=== PATIENT | male | born 1960 | race Caucasian/White ===

== ENCOUNTER 2021-04-12 19:23 | Inpatient (IN) ==
[2021-04-12] MEDS ORDERED: ONDANSETRON 4 MG/2 ML VIAL IV STA (19:53)
[2021-04-12] MEDS ORDERED: methylPREDNISolone SOD SUC 125 MG/2 ML VIAL IV STA (19:53)
[2021-04-12] MEDS ORDERED: SODIUM CHLORIDE 0.9% 500 ML IV STA (19:53)
[2021-04-12] MEDS ORDERED: IPRATROPIUM 500 MCG/2.5 ML NEB RESP TX STA (19:55)
[2021-04-12] MEDS ORDERED: ALBUTEROL 2.5 MG/3 ML NEB RESP TX ONE (19:58)
[2021-04-12] MEDS ORDERED: ALBUTEROL NEB SOLN 5 MG/ML 20 ML/BOTTLE CONT NEB SCH (20:00)
[2021-04-12 20:10] LABS: ABG Base Excess 1.1 MMOL/L (-2.5-2.5); ABG HCO3 22.6 MMOL/L (20-26); ABG Oxygen Saturation 92.7 % (95-100); ABG PCO2 26.3 MM HG (35-48); ABG PH 7.552 (7.35-7.45); ABG PO2 62.2 MM HG (80-95); ABG TCO2 23.4 MMOL/L (23-27); Allen Test Positive
[2021-04-12 20:42] LABS: Basophils % 0.3 % (0.0-0.8); Eosinophils % 0.3 % (0.00-10.9); Hematocrit 28.4 VOL% (42.0-52.0); Hemoglobin 9.1 GM/DL (14.0-18.0); Immature Granulocytes % 0.6 %; Immature Granulocytes Absolute 0.02 #; Lymphocytes # 0.6 10*3/uL (1.4-4.0); Lymphocytes % 15.3 % (21.2-54.2); Mean Corpuscular Volume 102.5 FL (87-102); Monocytes % 6.4 % (1.7-12.7); NRBC # 0.02 10*3/uL; Neutrophils % 77.1 % (38.7-73.9); Platelet Count 75 T/CUMM (130-400); Red Blood Count 2.77 MC/CUMM (3.8-5.5); Red Cell Distribution Width 21.6 % (9.3-17.3); White Blood Count 3.6 T/CUMM (4-12)
[2021-04-12] MEDS ORDERED: cefTRIAXone 1,000 MG in SODIUM CHLORIDE 0.9% 100 ML IV STA (20:42)
[2021-04-12 20:49] LABS: Barbiturates Screen,Urine Negative (Negative); Benzodiazepines Screen,Urine Negative (Negative); Bilirubin,Urine Negative (Negative); Blood, Urine Negative (Negative); Cannabinoid Screen,Urine Negative (Negative); Glucose,Urine (UA) Negative (Negative); Ketones,Urine Negative (Negative); Mucus,Urine Occasional /LPF (Occasional); Nitrite,Urine Negative (Negative); Opiate Screen,Urine Negative (Negative); Phencyclidine Screen,Urine Negative (Negative); Protein,Urine Negative; RBC,Urine 2 /HPF (0-4); Squamous Epithelial Cell,Urine Occasional /HPF (0-10); Urine Appearance CLEAR (Clear); Urine Color Amber (Yellow); Urine Specific Gravity 1.021 (1.001-1.035)
[2021-04-12 20:58] LABS: PT Patient Result 11.3 SECS (10.5-12.0)
[2021-04-12 21:07] LABS: Alanine Aminotransferase 62 U/L (16-61); Albumin 1.9 G/DL (3.4-5.0); Alkaline Phosphatase 244 U/L (45-117); Aspartate Amino Transferase 56 U/L (0-37); Blood Urea Nitrogen 59 MG/DL (7-18); Calcium 8.2 MG/DL (8.5-10.1); Carbon Dioxide 28 MMOL/L (21-32); Estimated Glom Filtration Rate 75 ML/MIN; Glucose 136 MG/DL (74-106); Osmolality,Calculated 295.5 MOS/KG (273-304); Potassium 4.3 MMOL/L (3.5-5.1); Sodium 139 MMOL/L (136-145); Total Protein 6.6 G/DL (6.4-8.2)
[2021-04-13] MEDS ORDERED: SODIUM CHLORIDE 0.9% 1,000 ML IV STA ×2 (01:29→07:35)
[2021-04-13] MEDS ORDERED: ACETAMINOPHEN 325 MG TABLET PO PRN (02:19)
[2021-04-13] MEDS ORDERED: GLUCAGON 1 MG VIAL IM PRN (02:19)
[2021-04-13] MEDS ORDERED: ONDANSETRON 4 MG/2 ML VIAL IV PRN (02:19)
[2021-04-13] MEDS ORDERED: LACTULOSE 20 GM/30 ML UDCUP PO PRN (02:19)
[2021-04-13] MEDS ORDERED: DEXTROSE 50% 25 GM/50 ML SYRINGE IV PRN (02:32)
[2021-04-13] MEDS ORDERED: cefTRIAXone 1,000 MG in SODIUM CHLORIDE 0.9% 100 ML IV SCH (03:00)
[2021-04-13] MEDS: SODIUM CHLORIDE 0.9% 1,000 ML IV SCH ×2 (03:27→17:38)
[2021-04-13 04:27] LABS: Hemoglobin 7.7 GM/DL (14.0-18.0); Immature Granulocytes % 0.5 %; Immature Granulocytes Absolute 0.01 #; Lymphocytes # 0.2 10*3/uL (1.4-4.0); Lymphocytes % 11.1 % (21.2-54.2); Mean Corpuscular HGB Conc 30.8 GM/DL (32-36); Mean Corpuscular Volume 106.4 FL (87-102); Mean Platelet Volume 12.4 FL (9.6-12.0); Monocytes % 1.4 % (1.7-12.7); Platelet Count 61 T/CUMM (130-400); Red Blood Count 2.35 MC/CUMM (3.8-5.5); Red Cell Distribution Width 21.9 % (9.3-17.3); White Blood Count 2.2 T/CUMM (4-12)
[2021-04-13 04:48] LABS: Albumin 1.7 G/DL (3.4-5.0); Bilirubin,Total 0.4 MG/DL (0.20-1.00); Calcium 8.8 MG/DL (8.5-10.1); Osmolality,Calculated 295.5 MOS/KG (273-304); Potassium 4.2 MMOL/L (3.5-5.1); Total Protein 6.3 G/DL (6.4-8.2)
[2021-04-13] MEDS: methylPREDNISolone SOD SUC 40 MG/1 ML VIAL IV SCH ×3 (04:50→20:24)
[2021-04-13] MEDS: AZITHROMYCIN INJ 500 MG in SODIUM CHLORIDE 0.9% 250 ML IV SCH (04:53)
[2021-04-13] MEDS: ALBUTEROL/IPRATROPIUM 3 ML NEB RESP TX SCH ×3 (07:00→20:57)
[2021-04-13] MEDS ORDERED: AZTREONAM 2,000 MG in SODIUM CHLORIDE 0.9% 100 ML IV SCH (08:00)
[2021-04-13 08:11] LABS: ABG Base Excess -3.3 MMOL/L (-2.5-2.5); ABG HCO3 19.9 MMOL/L (20-26); ABG Oxygen Saturation 90.2 % (95-100); ABG PCO2 28.2 MM HG (35-48); ABG PH 7.467 (7.35-7.45); ABG PO2 59.9 MM HG (80-95); ABG TCO2 20.8 MMOL/L (23-27)
[2021-04-13] MEDS: MEROPENEM 500 MG in SODIUM CHLORIDE 0.9% 100 ML IV SCH ×3 (08:22→20:24)
[2021-04-13] MEDS: PANTOPRAZOLE 40 MG VIAL IV SCH (09:14)
[2021-04-13] MEDS: VANCOMYCIN INJ 1,000 MG in SODIUM CHLORIDE 0.9% 250 ML IV SCH ×2 (09:20→21:10)
[2021-04-13] MEDS: POLYETHYLENE GLYCOL POWDER 17 GM PACK PO SCH (09:21)
[2021-04-13] MEDS: MORPHINE 2 MG/1 ML SYRINGE IV PRN (20:27)
[2021-04-14] MEDS: MEROPENEM 500 MG in SODIUM CHLORIDE 0.9% 100 ML IV SCH ×4 (01:06→23:29)
[2021-04-14] MEDS: ALBUTEROL/IPRATROPIUM 3 ML NEB RESP TX SCH ×4 (01:12→20:25)
[2021-04-14] MEDS: methylPREDNISolone SOD SUC 40 MG/1 ML VIAL IV SCH ×3 (03:32→21:03)
[2021-04-14] MEDS: AZITHROMYCIN INJ 500 MG in SODIUM CHLORIDE 0.9% 250 ML IV SCH (03:33)
[2021-04-14] MEDS: SODIUM CHLORIDE 0.9% 1,000 ML IV SCH ×3 (03:33→15:26)
[2021-04-14 05:29] LABS: Hematocrit 23.1 VOL% (42.0-52.0); Hemoglobin 7.2 GM/DL (14.0-18.0); Immature Granulocytes % 0.9 %; Immature Granulocytes Absolute 0.02 #; Lymphocytes # 0.3 10*3/uL (1.4-4.0); Lymphocytes % 12.9 % (21.2-54.2); Mean Corpuscular HGB Conc 31.2 GM/DL (32-36); Mean Corpuscular Volume 107.9 FL (87-102); Mean Platelet Volume 12.3 FL (9.6-12.0); Monocytes % 5.3 % (1.7-12.7); NRBC # 0.03 10*3/uL; Neutrophils % 80.9 % (38.7-73.9); Red Blood Count 2.14 MC/CUMM (3.8-5.5); Red Cell Distribution Width 21.6 % (9.3-17.3); White Blood Count 2.3 T/CUMM (4-12)
[2021-04-14 05:44] LABS: Osmolality,Calculated 296.7 MOS/KG (273-304); Potassium 3.9 MMOL/L (3.5-5.1)
[2021-04-14 05:48] LABS: Platelet Count 50 T/CUMM (130-400)
[2021-04-14 06:18] LABS: Band Neutrophils 2 % (0-10); Lymphocytes 11 % (20-55); Segmented Neutrophils 82 % (50-85); Total Cells Counted 100
[2021-04-14 06:19] LABS: Anisocytosis 1+; Macrocytosis 1+; Ovalocytes Slight; Platelet Estimate Decreased; Tear Drop Cells Slight
[2021-04-14] MEDS ORDERED: SODIUM CHLORIDE 0.9% 1,000 ML IV PRN (09:12)
[2021-04-14] MEDS: POLYETHYLENE GLYCOL POWDER 17 GM PACK PO SCH (09:52)
[2021-04-14] MEDS: PANTOPRAZOLE 40 MG VIAL IV SCH (09:56)
[2021-04-14] MEDS: VANCOMYCIN INJ 1,000 MG in SODIUM CHLORIDE 0.9% 250 ML IV SCH ×2 (09:56→21:05)
[2021-04-14] MEDS: MORPHINE 2 MG/1 ML SYRINGE IV PRN (22:12)
[2021-04-15] MEDS: ALBUTEROL/IPRATROPIUM 3 ML NEB RESP TX SCH ×4 (00:30→20:50)
[2021-04-15] MEDS: methylPREDNISolone SOD SUC 40 MG/1 ML VIAL IV SCH ×3 (03:58→20:27)
[2021-04-15] MEDS: MEROPENEM 500 MG in SODIUM CHLORIDE 0.9% 100 ML IV SCH ×3 (05:13→17:37)
[2021-04-15] MEDS: SODIUM CHLORIDE 0.9% 1,000 ML IV SCH (06:01)
[2021-04-15 06:16] LABS: Albumin 1.6 G/DL (3.4-5.0); Bilirubin,Total 1.2 MG/DL (0.20-1.00); Calcium 8.4 MG/DL (8.5-10.1); Hematocrit 28.9 VOL% (42.0-52.0); Immature Granulocytes % 1.3 %; Immature Granulocytes Absolute 0.03 #; Lymphocytes # 0.3 10*3/uL (1.4-4.0); Lymphocytes % 11.4 % (21.2-54.2); Mean Corpuscular HGB Conc 32.2 GM/DL (32-36); Mean Corpuscular Volume 101.8 FL (87-102); Mean Platelet Volume 12.2 FL (9.6-12.0); Monocytes % 7.2 % (1.7-12.7); NRBC # 0.03 10*3/uL; Neutrophils % 80.1 % (38.7-73.9); Osmolality,Calculated 289.3 MOS/KG (273-304); Platelet Count 44 T/CUMM (130-400); Potassium 3.9 MMOL/L (3.5-5.1); Red Blood Count 2.84 MC/CUMM (3.8-5.5); Red Cell Distribution Width 23.1 % (9.3-17.3); Total Protein 5.2 G/DL (6.4-8.2); White Blood Count 2.4 T/CUMM (4-12)
[2021-04-15 06:17] LABS: Hemoglobin 9.3 GM/DL (14.0-18.0)
[2021-04-15 06:19] LABS: Hypochromasia Slight; Microcytosis Slight; Platelet Estimate Decreased
[2021-04-15] MEDS: POLYETHYLENE GLYCOL POWDER 17 GM PACK PO SCH (09:10)
[2021-04-15] MEDS: PANTOPRAZOLE 40 MG VIAL IV SCH (09:10)
[2021-04-15] MEDS: VANCOMYCIN INJ 1,000 MG in SODIUM CHLORIDE 0.9% 250 ML IV SCH (09:10)
[2021-04-15] MEDS ORDERED: FUROSEMIDE 40 MG/4 ML VIAL IV ONE (15:25)
[2021-04-15] MEDS: traZODone 50 MG TABLET PO PRN (22:53)
[2021-04-16] MEDS: MEROPENEM 500 MG in SODIUM CHLORIDE 0.9% 100 ML IV SCH ×5 (00:18→23:10)
[2021-04-16] MEDS: ALBUTEROL/IPRATROPIUM 3 ML NEB RESP TX SCH ×4 (01:59→19:24)
[2021-04-16] MEDS: methylPREDNISolone SOD SUC 40 MG/1 ML VIAL IV SCH ×3 (05:15→20:30)
[2021-04-16 05:17] LABS: Basophils % 0.4 % (0.0-0.8); Hematocrit 30.7 VOL% (42.0-52.0); Hemoglobin 9.8 GM/DL (14.0-18.0); Immature Granulocytes % 3.3 %; Immature Granulocytes Absolute 0.08 #; Lymphocytes # 0.3 10*3/uL (1.4-4.0); Lymphocytes % 13.6 % (21.2-54.2); Mean Corpuscular HGB Conc 31.9 GM/DL (32-36); Mean Platelet Volume 11.3 FL (9.6-12.0); Monocytes % 8.6 % (1.7-12.7); NRBC # 0.04 10*3/uL; Neutrophils % 74.1 % (38.7-73.9); Red Blood Count 3.01 MC/CUMM (3.8-5.5); Red Cell Distribution Width 22.5 % (9.3-17.3); White Blood Count 2.4 T/CUMM (4-12)
[2021-04-16 05:20] LABS: Platelet Count 37 T/CUMM (130-400)
[2021-04-16 05:35] LABS: Albumin 1.6 G/DL (3.4-5.0); Bilirubin,Total 0.6 MG/DL (0.20-1.00); Calcium 8.3 MG/DL (8.5-10.1); Osmolality,Calculated 287.3 MOS/KG (273-304); Potassium 3.8 MMOL/L (3.5-5.1)
[2021-04-16 05:40] LABS: Hypochromasia Slight; Microcytosis Slight; Platelet Estimate Decreased
[2021-04-16] MEDS: PANTOPRAZOLE 40 MG VIAL IV SCH (08:23)
[2021-04-16] MEDS: POLYETHYLENE GLYCOL POWDER 17 GM PACK PO SCH (08:27)
[2021-04-16] MEDS: traZODone 50 MG TABLET PO PRN (22:10)
[2021-04-17] MEDS: ALBUTEROL/IPRATROPIUM 3 ML NEB RESP TX SCH ×4 (00:52→19:41)
[2021-04-17] MEDS: methylPREDNISolone SOD SUC 40 MG/1 ML VIAL IV SCH ×3 (05:14→20:15)
[2021-04-17] MEDS: MEROPENEM 500 MG in SODIUM CHLORIDE 0.9% 100 ML IV SCH ×4 (05:15→23:11)
[2021-04-17 05:49] LABS: Basophils % 0.4 % (0.0-0.8); Hematocrit 32.4 VOL% (42.0-52.0); Hemoglobin 10.5 GM/DL (14.0-18.0); Immature Granulocytes % 5.4 %; Immature Granulocytes Absolute 0.14 #; Lymphocytes # 0.4 10*3/uL (1.4-4.0); Lymphocytes % 13.6 % (21.2-54.2); Mean Corpuscular HGB Conc 32.4 GM/DL (32-36); Mean Corpuscular Volume 101.6 FL (87-102); Mean Platelet Volume 11.7 FL (9.6-12.0); Monocytes % 8.6 % (1.7-12.7); NRBC # 0.03 10*3/uL; Platelet Count 46 T/CUMM (130-400); Red Blood Count 3.19 MC/CUMM (3.8-5.5); Red Cell Distribution Width 22.1 % (9.3-17.3); White Blood Count 2.6 T/CUMM (4-12)
[2021-04-17 05:55] LABS: Albumin 1.8 G/DL (3.4-5.0); Bilirubin,Total 0.4 MG/DL (0.20-1.00); Calcium 8.4 MG/DL (8.5-10.1); Osmolality,Calculated 285.1 MOS/KG (273-304); Potassium 4.2 MMOL/L (3.5-5.1); Total Protein 5.2 G/DL (6.4-8.2)
[2021-04-17 06:18] LABS: Anisocytosis 2+; Hypochromasia 2+; Lymphocytes 13 % (20-55); Metamyelocytes 3 %; Myelocytes 3 %; Ovalocytes Few; Polychromasia Slight; Segmented Neutrophils 77 % (50-85); Total Cells Counted 100
[2021-04-17 06:19] LABS: Elliptocytes Few; Platelet Estimate Decreased; Tear Drop Cells Few
[2021-04-17] MEDS: POLYETHYLENE GLYCOL POWDER 17 GM PACK PO SCH (09:20)
[2021-04-17] MEDS: PANTOPRAZOLE 40 MG VIAL IV SCH (09:20)
[2021-04-17] MEDS: traZODone 50 MG TABLET PO PRN (22:06)
[2021-04-18] MEDS: ALBUTEROL/IPRATROPIUM 3 ML NEB RESP TX SCH ×4 (00:04→20:38)
[2021-04-18 13:36] LABS: Calcium 8.4 MG/DL (8.5-10.1); Osmolality,Calculated 286.1 MOS/KG (273-304); Potassium 4.2 MMOL/L (3.5-5.1)
[2021-04-18] MEDS: POLYETHYLENE GLYCOL POWDER 17 GM PACK PO SCH (15:26)
[2021-04-18] MEDS: PANTOPRAZOLE 40 MG VIAL IV SCH (15:26)
[2021-04-18] MEDS: methylPREDNISolone SOD SUC 40 MG/1 ML VIAL IV SCH ×3 (15:26→20:18)
[2021-04-18] MEDS: MEROPENEM 500 MG in SODIUM CHLORIDE 0.9% 100 ML IV SCH ×3 (15:26→20:21)
[2021-04-18 16:10] LABS: Basophils % 0.4 % (0.0-0.8); Hematocrit 32.4 VOL% (42.0-52.0); Hemoglobin 10.2 GM/DL (14.0-18.0); Immature Granulocytes % 2.5 %; Immature Granulocytes Absolute 0.06 #; Lymphocytes # 0.4 10*3/uL (1.4-4.0); Lymphocytes % 14.6 % (21.2-54.2); Mean Corpuscular HGB Conc 31.5 GM/DL (32-36); Mean Corpuscular Volume 106.2 FL (87-102); Mean Platelet Volume 12.1 FL (9.6-12.0); Monocytes % 7.1 % (1.7-12.7); NRBC # 0.03 10*3/uL; Neutrophils % 75.4 % (38.7-73.9); Platelet Count 45 T/CUMM (130-400); Red Blood Count 3.05 MC/CUMM (3.8-5.5); Red Cell Distribution Width 22.5 % (9.3-17.3); White Blood Count 2.4 T/CUMM (4-12)
[2021-04-18 19:18] LABS: Platelet Estimate Decreased; Polychromasia Slight
[2021-04-19] MEDS: ALBUTEROL/IPRATROPIUM 3 ML NEB RESP TX SCH ×2 (01:37→07:12)
[2021-04-19] MEDS: methylPREDNISolone SOD SUC 40 MG/1 ML VIAL IV SCH ×2 (04:04→15:03)
[2021-04-19] MEDS: MEROPENEM 500 MG in SODIUM CHLORIDE 0.9% 100 ML IV SCH ×2 (04:06→09:03)
[2021-04-19 06:42] LABS: Basophils % 0.3 % (0.0-0.8); Hematocrit 33.4 VOL% (42.0-52.0); Hemoglobin 10.9 GM/DL (14.0-18.0); Immature Granulocytes % 2.9 %; Immature Granulocytes Absolute 0.09 #; Lymphocytes # 0.3 10*3/uL (1.4-4.0); Lymphocytes % 8.1 % (21.2-54.2); Mean Corpuscular HGB Conc 32.6 GM/DL (32-36); Mean Corpuscular Volume 103.1 FL (87-102); Mean Platelet Volume 11.6 FL (9.6-12.0); Monocytes % 6.5 % (1.7-12.7); Neutrophils % 82.2 % (38.7-73.9); Platelet Count 53 T/CUMM (130-400); Red Blood Count 3.24 MC/CUMM (3.8-5.5); Red Cell Distribution Width 21.8 % (9.3-17.3); White Blood Count 3.1 T/CUMM (4-12)
[2021-04-19 06:54] LABS: Calcium 8.4 MG/DL (8.5-10.1); Osmolality,Calculated 282.4 MOS/KG (273-304); Potassium 4.4 MMOL/L (3.5-5.1)
[2021-04-19 07:13] LABS: Anisocytosis 1+; Hypochromasia 1+; Microcytosis 1+; Polychromasia Slight; Tear Drop Cells Slight
[2021-04-19 07:14] LABS: Ovalocytes Slight; Platelet Estimate Decreased
[2021-04-19] MEDS: POLYETHYLENE GLYCOL POWDER 17 GM PACK PO SCH (09:04)
[2021-04-19] MEDS: PANTOPRAZOLE 40 MG VIAL IV SCH (09:04)
[2021-04-19] MEDS ORDERED: HEPARIN LOCK FLUSH 500 UNIT/5 ML SYRINGE IV ONE (15:21)
[2021-04-19 17:01] VITALS: BP 115/78
[2021-04-20] MEDS ORDERED: predniSONE 20 MG TABLET PO SCH (09:00)
== END 2021-04-19 16:25 | disposition home health service (06) | DRG 193 ==
LOC: EDUNIT# → EDBD → N.ED 19:23 → N.EDINP 04-13 02:19 → SUATTDRO 04-13 02:19 → N.2E 04-13 12:21
PROVIDERS: ADMIT Internal Medicine; ATTEND Internal Medicine

== ENCOUNTER 2021-04-27 11:46 | Inpatient (IN) ==
[2021-04-27] MEDS ORDERED: FUROSEMIDE 100 MG/10 ML VIAL IV STA (11:59)
[2021-04-27] MEDS ORDERED: methylPREDNISolone SOD SUC 125 MG/2 ML VIAL IV STA (11:59)
[2021-04-27] MEDS ORDERED: ALBUTEROL/IPRATROPIUM 3 ML NEB RESP TX STA (11:59)
[2021-04-27] MEDS ORDERED: propofoL 200 MG/20 ML VIAL IV ONE (12:08)
[2021-04-27 12:14] LABS: Basophils # 0.1 10*3/uL (0.0-0.2); Basophils % 0.4 % (0.0-0.8); Eosinophils # 0.1 10*3/uL (0.0-0.87); Eosinophils % 0.5 % (0.00-10.9); Hematocrit 43.5 VOL% (42.0-52.0); Hemoglobin 13.8 GM/DL (14.0-18.0); Immature Granulocytes Absolute 0.32 #; Lymphocytes # 4.3 10*3/uL (1.4-4.0); Mean Corpuscular HGB Conc 31.7 GM/DL (32-36); Mean Corpuscular Volume 106.1 FL (87-102); Mean Platelet Volume 10.3 FL (9.6-12.0); Monocytes % 10.6 % (1.7-12.7); Neutrophils % 59.5 % (38.7-73.9); Platelet Count 201 T/CUMM (130-400); Red Cell Distribution Width 20.9 % (9.3-17.3); White Blood Count 16.1 T/CUMM (4-12)
[2021-04-27 12:15] LABS: ABG HCO3 20.1 MMOL/L (20-26); ABG Oxygen Saturation 85.7 % (95-100); ABG PCO2 31.6 MM HG (35-48); ABG PH 7.386 (7.35-7.45); ABG PO2 56.8 MM HG (80-95); ABG TCO2 16.4 MMOL/L (23-27)
[2021-04-27 12:35] LABS: Albumin 2.4 G/DL (3.4-5.0); Bilirubin,Total 0.7 MG/DL (0.20-1.00); Calcium 8.8 MG/DL (8.5-10.1); Osmolality,Calculated 285.7 MOS/KG (273-304); Potassium 3.5 MMOL/L (3.5-5.1); Total Protein 7.2 G/DL (6.4-8.2)
[2021-04-27 12:44] LABS: Atypical Lymphocytes Few; Band Neutrophils 6 % (0-10); Lymphocytes 25 % (20-55); Myelocytes 2 %; Platelet Estimate Normal; Segmented Neutrophils 52 % (50-85); Total Cells Counted 100
[2021-04-27 12:45] LABS: Anisocytosis 1+; Macrocytosis 1+; Smudge Cells Few; Spherocytes Few
[2021-04-27] MEDS ORDERED: MORPHINE 2 MG/1 ML SYRINGE ONE (13:16)
[2021-04-27] MEDS ORDERED: ONDANSETRON 4 MG/2 ML VIAL ONE (13:16)
[2021-04-27] MEDS ORDERED: ONDANSETRON 4 MG/2 ML VIAL IV STA (13:22)
[2021-04-27] MEDS ORDERED: MORPHINE 2 MG/1 ML SYRINGE IV STA ×3 (13:22→15:00)
[2021-04-27] MEDS ORDERED: SODIUM CHLORIDE 0.9% 500 ML IV STA (14:48)
[2021-04-27] MEDS ORDERED: ALBUTEROL 2.5 MG/3 ML NEB RESP TX PRN (15:09)
[2021-04-27] MEDS: LACTATED RINGERS 1,000 ML IV SCH ×2 (15:35→23:38)
[2021-04-27] MEDS: ENOXAPARIN 40 MG/0.4 ML SYRINGE SUBCUT SCH (15:52)
[2021-04-27] MEDS ORDERED: HYDROmorphone 2 MG/1 ML VIAL IV STA (16:00)
[2021-04-27] MEDS ORDERED: HYDROmorphone 2 MG/1 ML VIAL ONE (16:10)
[2021-04-27] MEDS: LEVOFLOXACIN INJ 750 MG/150 ML PREMIX IV SCH (16:10)
[2021-04-27] MEDS: ONDANSETRON 4 MG/2 ML VIAL IV PRN (20:16)
[2021-04-27] MEDS: MORPHINE 2 MG/1 ML SYRINGE IV PRN (20:43)
[2021-04-27] MEDS ORDERED: ONDANSETRON 4 MG/2 ML VIAL IV ONE (21:07)
[2021-04-27] MEDS ORDERED: PROMETHAZINE INJ 25 MG in SODIUM CHLORIDE 0.9% 50 ML IV PRN (21:40)
[2021-04-28] MEDS: LACTATED RINGERS 1,000 ML IV SCH ×3 (01:48→17:26)
[2021-04-28] MEDS: MORPHINE 2 MG/1 ML SYRINGE IV PRN ×5 (03:24→22:42)
[2021-04-28 03:29] LABS: ABG Base Excess 1.5 MMOL/L (-2.5-2.5); ABG HCO3 25.7 MMOL/L (20-26); ABG Oxygen Saturation 94.6 % (95-100); ABG PCO2 35.2 MM HG (35-48); ABG PH 7.459 (7.35-7.45); ABG PO2 71.8 MM HG (80-95); ABG TCO2 22.2 MMOL/L (23-27)
[2021-04-28 03:41] LABS: Bilirubin,Total 0.7 MG/DL (0.20-1.00); Calcium 8.6 MG/DL (8.5-10.1); Osmolality,Calculated 279.7 MOS/KG (273-304); Potassium 4.2 MMOL/L (3.5-5.1); Total Protein 5.9 G/DL (6.4-8.2)
[2021-04-28 03:44] LABS: Basophils % 0.1 % (0.0-0.8); Hematocrit 34.6 VOL% (42.0-52.0); Immature Granulocytes % 0.9 %; Immature Granulocytes Absolute 0.07 #; Lymphocytes # 0.5 10*3/uL (1.4-4.0); Lymphocytes % 7.1 % (21.2-54.2); Mean Corpuscular HGB Conc 32.4 GM/DL (32-36); Mean Corpuscular Volume 103.9 FL (87-102); Mean Platelet Volume 10.4 FL (9.6-12.0); Monocytes % 8.7 % (1.7-12.7); Neutrophils % 83.2 % (38.7-73.9); Red Blood Count 3.33 MC/CUMM (3.8-5.5); Red Cell Distribution Width 20.4 % (9.3-17.3)
[2021-04-28 03:48] LABS: Hemoglobin 11.2 GM/DL (14.0-18.0); Platelet Count 109 T/CUMM (130-400); White Blood Count 7.5 T/CUMM (4-12)
[2021-04-28] MEDS: ONDANSETRON 4 MG/2 ML VIAL IV PRN (05:54)
[2021-04-28] MEDS: PANTOPRAZOLE 40 MG TABLET PO SCH (08:49)
[2021-04-28] MEDS ORDERED: MAGNESIUM SULF RIDER 4 GM/100 ML PREMIX IV ONE (10:25)
[2021-04-28] MEDS ORDERED: POLYETHYLENE GLYCOL POWDER 17 GM PACK PO PRN (10:51)
[2021-04-28] MEDS: ATORVASTATIN 80 MG TABLET PO SCH (11:10)
[2021-04-28] MEDS: ASPIRIN EC 81 MG TABLET PO SCH (11:10)
[2021-04-28] MEDS: LEVOFLOXACIN INJ 750 MG/150 ML PREMIX IV SCH (16:14)
[2021-04-28] MEDS: ENOXAPARIN 40 MG/0.4 ML SYRINGE SUBCUT SCH (16:24)
[2021-04-28 16:47] LABS: ABG Base Excess 2.6 MMOL/L (-2.5-2.5); ABG HCO3 26.7 MMOL/L (20-26); ABG Oxygen Saturation 94.1 % (95-100); ABG PCO2 40.2 MM HG (35-48); ABG PH 7.435 (7.35-7.45); ABG PO2 69.5 MM HG (80-95); ABG TCO2 24.2 MMOL/L (23-27)
[2021-04-29] MEDS: MORPHINE 2 MG/1 ML SYRINGE IV PRN ×2 (05:43→09:59)
[2021-04-29 06:08] LABS: Basophils % 0.2 % (0.0-0.8); Eosinophils % 0.4 % (0.00-10.9); Hematocrit 31.1 VOL% (42.0-52.0); Hemoglobin 9.9 GM/DL (14.0-18.0); Immature Granulocytes % 0.9 %; Immature Granulocytes Absolute 0.04 #; Lymphocytes # 0.4 10*3/uL (1.4-4.0); Lymphocytes % 8.4 % (21.2-54.2); Mean Corpuscular HGB Conc 31.8 GM/DL (32-36); Mean Corpuscular Volume 104.4 FL (87-102); Mean Platelet Volume 10.1 FL (9.6-12.0); Monocytes % 8.9 % (1.7-12.7); Neutrophils % 81.2 % (38.7-73.9); Red Blood Count 2.98 MC/CUMM (3.8-5.5); Red Cell Distribution Width 19.7 % (9.3-17.3); White Blood Count 4.6 T/CUMM (4-12)
[2021-04-29 06:27] LABS: Platelet Count 99 T/CUMM (130-400)
[2021-04-29 06:33] LABS: Calcium 8.4 MG/DL (8.5-10.1); Potassium 3.9 MMOL/L (3.5-5.1)
[2021-04-29 06:34] LABS: Platelet Estimate Decreased
[2021-04-29] MEDS: ATORVASTATIN 80 MG TABLET PO SCH (08:50)
[2021-04-29] MEDS: ASPIRIN EC 81 MG TABLET PO SCH (08:50)
[2021-04-29] MEDS: PANTOPRAZOLE 40 MG TABLET PO SCH (08:50)
[2021-04-29] MEDS: LEVOFLOXACIN INJ 750 MG/150 ML PREMIX IV SCH (16:54)
[2021-04-29] MEDS: ENOXAPARIN 40 MG/0.4 ML SYRINGE SUBCUT SCH (16:54)
[2021-04-29] MEDS: ZINC OXIDE PASTE 113 GM TUBE TOP SCH (20:07)
[2021-04-30] MEDS: MORPHINE 2 MG/1 ML SYRINGE IV PRN ×2 (02:44→06:12)
[2021-04-30] MEDS: ATORVASTATIN 80 MG TABLET PO SCH (08:57)
[2021-04-30] MEDS: ZINC OXIDE PASTE 113 GM TUBE TOP SCH (08:57)
[2021-04-30] MEDS: ASPIRIN EC 81 MG TABLET PO SCH (08:57)
[2021-04-30] MEDS: PANTOPRAZOLE 40 MG TABLET PO SCH (08:58)
[2021-04-30] MEDS: LEVOFLOXACIN INJ 750 MG/150 ML PREMIX IV SCH ×2 (18:02→21:11)
[2021-04-30] MEDS: ENOXAPARIN 40 MG/0.4 ML SYRINGE SUBCUT SCH ×2 (18:03→21:11)
[2021-05-01] MEDS: ZINC OXIDE PASTE 113 GM TUBE TOP SCH ×3 (03:29→20:23)
[2021-05-01] MEDS: ASPIRIN EC 81 MG TABLET PO SCH (09:44)
[2021-05-01] MEDS: ATORVASTATIN 80 MG TABLET PO SCH (09:44)
[2021-05-01] MEDS: PANTOPRAZOLE 40 MG TABLET PO SCH (09:44)
[2021-05-01] MEDS: LEVOFLOXACIN INJ 750 MG/150 ML PREMIX IV SCH (20:23)
[2021-05-01] MEDS: ENOXAPARIN 40 MG/0.4 ML SYRINGE SUBCUT SCH (20:23)
[2021-05-02] MEDS: ASPIRIN EC 81 MG TABLET PO SCH (08:10)
[2021-05-02] MEDS: ATORVASTATIN 80 MG TABLET PO SCH (08:10)
[2021-05-02] MEDS: PANTOPRAZOLE 40 MG TABLET PO SCH (08:11)
[2021-05-02] MEDS: ZINC OXIDE PASTE 113 GM TUBE TOP SCH ×2 (11:02→20:40)
[2021-05-02] MEDS: MORPHINE 2 MG/1 ML SYRINGE IV PRN (11:26)
[2021-05-02] MEDS ORDERED: BENZONATATE 100 MG CAPSULE PO PRN (15:21)
[2021-05-02] MEDS: LEVOFLOXACIN INJ 750 MG/150 ML PREMIX IV SCH (20:40)
[2021-05-02] MEDS: ENOXAPARIN 40 MG/0.4 ML SYRINGE SUBCUT SCH (20:40)
[2021-05-03 06:42] LABS: Basophils % 0.3 % (0.0-0.8); Eosinophils # 0.1 10*3/uL (0.0-0.87); Eosinophils % 1.5 % (0.00-10.9); Hematocrit 31.6 VOL% (42.0-52.0); Hemoglobin 10.2 GM/DL (14.0-18.0); Immature Granulocytes % 1.8 %; Immature Granulocytes Absolute 0.06 #; Lymphocytes # 0.3 10*3/uL (1.4-4.0); Lymphocytes % 9.1 % (21.2-54.2); Mean Corpuscular HGB Conc 32.3 GM/DL (32-36); Mean Corpuscular Volume 104.3 FL (87-102); Mean Platelet Volume 10.3 FL (9.6-12.0); Monocytes % 13.9 % (1.7-12.7); Neutrophils % 73.4 % (38.7-73.9); Platelet Count 127 T/CUMM (130-400); Red Blood Count 3.03 MC/CUMM (3.8-5.5); Red Cell Distribution Width 18.6 % (9.3-17.3); White Blood Count 3.4 T/CUMM (4-12)
[2021-05-03 06:54] LABS: Calcium 8.6 MG/DL (8.5-10.1); Osmolality,Calculated 275.7 MOS/KG (273-304); Potassium 3.9 MMOL/L (3.5-5.1)
[2021-05-03] MEDS: PANTOPRAZOLE 40 MG TABLET PO SCH (09:38)
[2021-05-03] MEDS: ATORVASTATIN 80 MG TABLET PO SCH (09:38)
[2021-05-03] MEDS: ASPIRIN EC 81 MG TABLET PO SCH (09:38)
[2021-05-03] MEDS: ZINC OXIDE PASTE 113 GM TUBE TOP SCH ×2 (09:41→20:56)
[2021-05-03] MEDS: LEVOFLOXACIN INJ 750 MG/150 ML PREMIX IV SCH (20:50)
[2021-05-03] MEDS: ENOXAPARIN 40 MG/0.4 ML SYRINGE SUBCUT SCH (20:56)
[2021-05-03] MEDS ORDERED: MAGNESIUM SULF RIDER 2 GM/50 ML PREMIX IV ONE (21:41)
[2021-05-04 06:42] LABS: Basophils % 0.4 % (0.0-0.8); Eosinophils # 0.1 10*3/uL (0.0-0.87); Eosinophils % 1.3 % (0.00-10.9); Hematocrit 32.8 VOL% (42.0-52.0); Hemoglobin 10.7 GM/DL (14.0-18.0); Immature Granulocytes % 1.8 %; Immature Granulocytes Absolute 0.08 #; Lymphocytes # 0.4 10*3/uL (1.4-4.0); Lymphocytes % 9.8 % (21.2-54.2); Mean Corpuscular HGB Conc 32.6 GM/DL (32-36); Mean Corpuscular Volume 104.1 FL (87-102); Mean Platelet Volume 10.5 FL (9.6-12.0); Monocytes % 13.5 % (1.7-12.7); Neutrophils % 73.2 % (38.7-73.9); Platelet Count 133 T/CUMM (130-400); Red Blood Count 3.15 MC/CUMM (3.8-5.5); Red Cell Distribution Width 18.5 % (9.3-17.3); White Blood Count 4.5 T/CUMM (4-12)
[2021-05-04 07:04] LABS: Calcium 8.8 MG/DL (8.5-10.1); Potassium 4.1 MMOL/L (3.5-5.1)
[2021-05-04] MEDS: ATORVASTATIN 80 MG TABLET PO SCH (09:30)
[2021-05-04] MEDS: PANTOPRAZOLE 40 MG TABLET PO SCH (09:30)
[2021-05-04] MEDS: ASPIRIN EC 81 MG TABLET PO SCH (09:30)
[2021-05-04] MEDS: ZINC OXIDE PASTE 113 GM TUBE TOP SCH (09:30)
[2021-05-04] MEDS ORDERED: HEPARIN LOCK FLUSH 500 UNIT/5 ML SYRINGE IV ONE (14:59)
[2021-05-04 16:10] VITALS: BP 112/66
== END 2021-05-04 16:50 | disposition home health service (06) | DRG 199 ==
LOC: EDBD → EDUNIT# → N.ED 11:46 → SUATTDRO 15:09 → N.CC 15:09 → N.2E 04-30 13:46
PROVIDERS: ADMIT Family Medicine; ATTEND Internal Medicine

== ENCOUNTER 2021-05-24 12:16 | Inpatient (IN) ==
[2021-05-24] MEDS ORDERED: ALBUTEROL/IPRATROPIUM 3 ML NEB RESP TX STA (14:04)
[2021-05-24 14:31] LABS: Basophils % 0.3 % (0.0-0.8); Eosinophils % 0.2 % (0.00-10.9); Hematocrit 38.2 VOL% (42.0-52.0); Hemoglobin 11.9 GM/DL (14.0-18.0); Immature Granulocytes % 1.7 %; Immature Granulocytes Absolute 0.25 #; Lymphocytes # 0.8 10*3/uL (1.4-4.0); Lymphocytes % 5.3 % (21.2-54.2); Mean Corpuscular HGB Conc 31.2 GM/DL (32-36); Mean Corpuscular Volume 107.9 FL (87-102); Monocytes % 8.1 % (1.7-12.7); NRBC # 0.02 10*3/uL; Neutrophils % 84.4 % (38.7-73.9); Platelet Count 139 T/CUMM (130-400); Red Blood Count 3.54 MC/CUMM (3.8-5.5); Red Cell Distribution Width 16.9 % (9.3-17.3); White Blood Count 14.9 T/CUMM (4-12)
[2021-05-24 14:53] LABS: Albumin 1.9 G/DL (3.4-5.0); Bilirubin,Total 0.6 MG/DL (0.20-1.00); Calcium 9.4 MG/DL (8.5-10.1); Potassium 4.1 MMOL/L (3.5-5.1); Total Protein 7.3 G/DL (6.4-8.2)
[2021-05-24] MEDS ORDERED: SODIUM CHLORIDE 0.9% 1,000 ML IV STA (15:27)
[2021-05-24] MEDS ORDERED: HYDROmorphone 2 MG/1 ML VIAL IV PRN (16:58)
[2021-05-24] MEDS ORDERED: GLUCAGON 1 MG VIAL IM PRN (18:49)
[2021-05-24] MEDS ORDERED: DEXTROSE 50% 25 GM/50 ML SYRINGE IV PRN (18:49)
[2021-05-24] MEDS ORDERED: POLYETHYLENE GLYCOL POWDER 17 GM PACK PO PRN (19:06)
[2021-05-24] MEDS: ALBUTEROL/IPRATROPIUM 3 ML NEB RESP TX SCH (19:52)
[2021-05-24] MEDS: LEVOFLOXACIN INJ 750 MG/150 ML PREMIX IV SCH (22:55)
[2021-05-25] MEDS: ALBUTEROL/IPRATROPIUM 3 ML NEB RESP TX SCH ×5 (01:00→19:48)
[2021-05-25 06:34] LABS: Hemoglobin 10.1 GM/DL (14.0-18.0); Lymphocytes # 0.6 10*3/uL (1.4-4.0)
[2021-05-25 06:44] LABS: Basophils % 0.2 % (0.0-0.8); Eosinophils # 0.1 10*3/uL (0.0-0.87); Eosinophils % 1.2 % (0.00-10.9); Hematocrit 32.7 VOL% (42.0-52.0); Immature Granulocytes % 2.2 %; Immature Granulocytes Absolute 0.18 #; Mean Corpuscular HGB Conc 30.9 GM/DL (32-36); Mean Corpuscular Volume 107.6 FL (87-102); Mean Platelet Volume 11.4 FL (9.6-12.0); Monocytes % 7.7 % (1.7-12.7); Neutrophils % 81.7 % (38.7-73.9); Red Blood Count 3.04 MC/CUMM (3.8-5.5); Red Cell Distribution Width 16.4 % (9.3-17.3)
[2021-05-25 06:45] LABS: Platelet Count 103 T/CUMM (130-400); White Blood Count 8.2 T/CUMM (4-12)
[2021-05-25 06:56] LABS: Calcium 8.7 MG/DL (8.5-10.1); Potassium 3.8 MMOL/L (3.5-5.1)
[2021-05-25] MEDS ORDERED: PANTOPRAZOLE 40 MG TABLET PO SCH (09:00)
[2021-05-25] MEDS: HYDROmorphone 2 MG/1 ML VIAL IV PRN ×3 (11:58→18:35)
[2021-05-25 14:31] LABS: Bacteria,Urine Occasional /HPF (Few); Bilirubin,Urine Negative (Negative); Blood, Urine Negative (Negative); Glucose,Urine (UA) Negative (Negative); Ketones,Urine Negative (Negative); Mucus,Urine Occasional /LPF (Occasional); Nitrite,Urine Negative (Negative); Protein,Urine Negative; RBC,Urine 1 /HPF (0-4); Urine Appearance CLEAR (Clear); Urine Color Yellow (Yellow)
[2021-05-25] MEDS ORDERED: DOXYCYCLINE HYCLATE INJ 200 MG, LIDOCAINE 1% INJ 20 ML in STERILE WATER INJ 30 ML INTRAPLEUR ONE (15:00)
[2021-05-25] MEDS: OMEPRAZOLE ODT 20 MG TABLET PO SCH (15:27)
[2021-05-25] MEDS: LEVOFLOXACIN INJ 750 MG/150 ML PREMIX IV SCH (21:39)
[2021-05-26] MEDS: ALBUTEROL/IPRATROPIUM 3 ML NEB RESP TX SCH ×4 (00:07→19:55)
[2021-05-26] MEDS ORDERED: MAGNESIUM SULF RIDER 2 GM/50 ML PREMIX IV ONE (08:24)
[2021-05-26 08:44] LABS: Basophils % 0.2 % (0.0-0.8); Eosinophils # 0.1 10*3/uL (0.0-0.87); Eosinophils % 0.7 % (0.00-10.9); Hematocrit 32.1 VOL% (42.0-52.0); Immature Granulocytes % 2.5 %; Immature Granulocytes Absolute 0.22 #; Lymphocytes # 0.5 10*3/uL (1.4-4.0); Lymphocytes % 5.7 % (21.2-54.2); Mean Corpuscular HGB Conc 31.2 GM/DL (32-36); Mean Corpuscular Volume 108.1 FL (87-102); Monocytes % 8.1 % (1.7-12.7); NRBC # 0.03 10*3/uL; Neutrophils % 82.8 % (38.7-73.9); Red Blood Count 2.97 MC/CUMM (3.8-5.5); Red Cell Distribution Width 16.3 % (9.3-17.3); White Blood Count 8.9 T/CUMM (4-12)
[2021-05-26 08:45] LABS: Platelet Count 98 T/CUMM (130-400)
[2021-05-26] MEDS: OMEPRAZOLE ODT 20 MG TABLET PO SCH (08:48)
[2021-05-26 08:49] LABS: Calcium 8.6 MG/DL (8.5-10.1); Osmolality,Calculated 283.4 MOS/KG (273-304); Potassium 3.6 MMOL/L (3.5-5.1)
[2021-05-26 09:29] LABS: Hypochromia Slight; Macrocytosis 1+
[2021-05-26 09:32] LABS: Platelet Estimate Decreased; Tear Drop Cells Few
[2021-05-26] MEDS: LEVOFLOXACIN INJ 750 MG/150 ML PREMIX IV SCH (21:28)
[2021-05-26] MEDS: HYDROmorphone 2 MG/1 ML VIAL IV PRN (22:43)
[2021-05-27] MEDS: ALBUTEROL/IPRATROPIUM 3 ML NEB RESP TX SCH ×4 (00:05→20:14)
[2021-05-27] MEDS: HYDROmorphone 2 MG/1 ML VIAL IV PRN (02:46)
[2021-05-27] MEDS ORDERED: FUROSEMIDE 20 MG/2 ML VIAL IV ONE (08:45)
[2021-05-27 10:42] LABS: Basophils % 0.4 % (0.0-0.8); Eosinophils # 0.1 10*3/uL (0.0-0.87); Eosinophils % 0.7 % (0.00-10.9); Hematocrit 34.8 VOL% (42.0-52.0); Hemoglobin 10.8 GM/DL (14.0-18.0); Immature Granulocytes % 4.3 %; Immature Granulocytes Absolute 0.35 #; Lymphocytes # 0.5 10*3/uL (1.4-4.0); Lymphocytes % 5.8 % (21.2-54.2); Mean Corpuscular Volume 106.4 FL (87-102); Mean Platelet Volume 11.8 FL (9.6-12.0); Monocytes % 8.6 % (1.7-12.7); NRBC # 0.02 10*3/uL; Neutrophils % 80.2 % (38.7-73.9); Platelet Count 83 T/CUMM (130-400); Red Blood Count 3.27 MC/CUMM (3.8-5.5); Red Cell Distribution Width 16.2 % (9.3-17.3); White Blood Count 8.1 T/CUMM (4-12)
[2021-05-27 10:57] LABS: Calcium 8.6 MG/DL (8.5-10.1); Osmolality,Calculated 279.7 MOS/KG (273-304); Potassium 4.2 MMOL/L (3.5-5.1)
[2021-05-27 10:59] LABS: Hypochromia 1+; Macrocytosis 1+; Polychromasia Slight
[2021-05-27 11:00] LABS: Platelet Estimate Decreased; Tear Drop Cells Slight
[2021-05-27] MEDS: fentaNYL 25 MCG/HR PATCH TRANSDERM SCH (11:41)
[2021-05-27] MEDS: OMEPRAZOLE ODT 20 MG TABLET PO SCH (11:41)
[2021-05-27] MEDS: LEVOFLOXACIN INJ 750 MG/150 ML PREMIX IV SCH (22:16)
[2021-05-28] MEDS: HYDROmorphone 2 MG/1 ML VIAL IV PRN ×4 (01:40→21:38)
[2021-05-28 05:34] LABS: Basophils # 0.1 10*3/uL (0.0-0.2); Basophils % 0.5 % (0.0-0.8); Eosinophils # 0.1 10*3/uL (0.0-0.87); Eosinophils % 0.9 % (0.00-10.9); Hematocrit 34.9 VOL% (42.0-52.0); Hemoglobin 11.2 GM/DL (14.0-18.0); Immature Granulocytes % 4.8 %; Immature Granulocytes Absolute 0.44 #; Lymphocytes # 0.7 10*3/uL (1.4-4.0); Lymphocytes % 7.6 % (21.2-54.2); Mean Corpuscular HGB Conc 32.1 GM/DL (32-36); Mean Corpuscular Volume 106.1 FL (87-102); Mean Platelet Volume 11.8 FL (9.6-12.0); Monocytes % 8.1 % (1.7-12.7); Neutrophils % 78.1 % (38.7-73.9); Platelet Count 85 T/CUMM (130-400); Red Blood Count 3.29 MC/CUMM (3.8-5.5); Red Cell Distribution Width 15.9 % (9.3-17.3); White Blood Count 9.2 T/CUMM (4-12)
[2021-05-28 05:57] LABS: Calcium 9.3 MG/DL (8.5-10.1); Potassium 4.2 MMOL/L (3.5-5.1)
[2021-05-28 05:59] LABS: Platelet Estimate Decreased
[2021-05-28] MEDS: ALBUTEROL/IPRATROPIUM 3 ML NEB RESP TX SCH ×4 (07:05→19:17)
[2021-05-28] MEDS: OMEPRAZOLE ODT 20 MG TABLET PO SCH (09:56)
[2021-05-28] MEDS ORDERED: DEXTROSE 10% 250 ML BAG IV PRN (10:30)
[2021-05-28] MEDS ORDERED: MORPHINE 2 MG/1 ML SYRINGE IV ONE (15:36)
[2021-05-28] MEDS: LEVOFLOXACIN INJ 750 MG/150 ML PREMIX IV SCH (20:03)
[2021-05-29] MEDS: ALBUTEROL/IPRATROPIUM 3 ML NEB RESP TX SCH ×4 (00:08→20:06)
[2021-05-29] MEDS: HYDROmorphone 2 MG/1 ML VIAL IV PRN ×4 (01:39→22:10)
[2021-05-29 06:49] LABS: Basophils % 0.4 % (0.0-0.8); Eosinophils # 0.1 10*3/uL (0.0-0.87); Eosinophils % 1.2 % (0.00-10.9); Hematocrit 35.4 VOL% (42.0-52.0); Hemoglobin 11.3 GM/DL (14.0-18.0); Immature Granulocytes % 4.8 %; Immature Granulocytes Absolute 0.52 #; Lymphocytes # 0.5 10*3/uL (1.4-4.0); Lymphocytes % 4.4 % (21.2-54.2); Mean Corpuscular HGB Conc 31.9 GM/DL (32-36); Mean Platelet Volume 11.5 FL (9.6-12.0); Monocytes % 7.6 % (1.7-12.7); Neutrophils % 81.6 % (38.7-73.9); Platelet Count 88 T/CUMM (130-400); Red Blood Count 3.37 MC/CUMM (3.8-5.5); Red Cell Distribution Width 15.9 % (9.3-17.3); White Blood Count 10.9 T/CUMM (4-12)
[2021-05-29 07:16] LABS: Band Neutrophils 7 % (0-10); Eosinophils 1 % (0-10); Lymphocytes 5 % (20-55); Metamyelocytes 1 %; Myelocytes 1 %; Platelet Estimate Decreased; Segmented Neutrophils 78 % (50-85); Tear Drop Cells Few; Total Cells Counted 100
[2021-05-29 07:17] LABS: Anisocytosis Slight; Macrocytosis 1+
[2021-05-29 07:20] LABS: Osmolality,Calculated 276.1 MOS/KG (273-304); Potassium 4.7 MMOL/L (3.5-5.1)
[2021-05-29] MEDS: ONDANSETRON 4 MG TABLET PO PRN (08:22)
[2021-05-29] MEDS: OMEPRAZOLE ODT 20 MG TABLET PO SCH (08:22)
[2021-05-29] MEDS: GABAPENTIN 50 MG/ML 30 ML/BOTTLE PO SCH ×2 (11:35→20:12)
[2021-05-29] MEDS: LEVOFLOXACIN INJ 750 MG/150 ML PREMIX IV SCH (20:23)
[2021-05-30] MEDS: ALBUTEROL/IPRATROPIUM 3 ML NEB RESP TX SCH ×4 (02:08→19:09)
[2021-05-30] MEDS: HYDROmorphone 2 MG/1 ML VIAL IV PRN ×2 (03:13→08:15)
[2021-05-30 07:27] LABS: Basophils # 0.1 10*3/uL (0.0-0.2); Basophils % 0.5 % (0.0-0.8); Eosinophils # 0.1 10*3/uL (0.0-0.87); Eosinophils % 1.2 % (0.00-10.9); Hemoglobin 11.1 GM/DL (14.0-18.0); Immature Granulocytes % 5.2 %; Immature Granulocytes Absolute 0.55 #; Lymphocytes # 0.8 10*3/uL (1.4-4.0); Lymphocytes % 7.2 % (21.2-54.2); Mean Corpuscular HGB Conc 31.7 GM/DL (32-36); Mean Corpuscular Volume 105.7 FL (87-102); Mean Platelet Volume 12.4 FL (9.6-12.0); Monocytes % 8.2 % (1.7-12.7); NRBC # 0.02 10*3/uL; Neutrophils % 77.7 % (38.7-73.9); Platelet Count 84 T/CUMM (130-400); Red Blood Count 3.31 MC/CUMM (3.8-5.5); Red Cell Distribution Width 15.6 % (9.3-17.3); White Blood Count 10.6 T/CUMM (4-12)
[2021-05-30 07:50] LABS: Calcium 8.8 MG/DL (8.5-10.1); Osmolality,Calculated 272.5 MOS/KG (273-304); Potassium 4.6 MMOL/L (3.5-5.1)
[2021-05-30] MEDS: fentaNYL 25 MCG/HR PATCH TRANSDERM SCH (08:13)
[2021-05-30] MEDS: OMEPRAZOLE ODT 20 MG TABLET PO SCH (08:14)
[2021-05-30] MEDS: GABAPENTIN 50 MG/ML 30 ML/BOTTLE PO SCH ×2 (08:22→21:01)
[2021-05-30 08:44] LABS: Anisocytosis 1+; Band Neutrophils 11 % (0-10); Lymphocytes 7 % (20-55); Macrocytosis 1+; Metamyelocytes 1 %; Myelocytes 1 %; Platelet Estimate Decreased; Segmented Neutrophils 73 % (50-85); Tear Drop Cells Few; Total Cells Counted 100
[2021-05-30] MEDS: LEVOFLOXACIN INJ 750 MG/150 ML PREMIX IV SCH (21:00)
[2021-05-31] MEDS: ALBUTEROL/IPRATROPIUM 3 ML NEB RESP TX SCH ×4 (00:46→19:15)
[2021-05-31] MEDS: HYDROmorphone 2 MG/1 ML VIAL IV PRN (03:20)
[2021-05-31 05:03] LABS: Basophils # 0.1 10*3/uL (0.0-0.2); Basophils % 0.7 % (0.0-0.8); Eosinophils # 0.1 10*3/uL (0.0-0.87); Eosinophils % 1.3 % (0.00-10.9); Hematocrit 33.9 VOL% (42.0-52.0); Hemoglobin 10.7 GM/DL (14.0-18.0); Immature Granulocytes % 5.9 %; Immature Granulocytes Absolute 0.53 #; Lymphocytes # 0.5 10*3/uL (1.4-4.0); Mean Corpuscular HGB Conc 31.6 GM/DL (32-36); Mean Corpuscular Volume 105.3 FL (87-102); Mean Platelet Volume 12.5 FL (9.6-12.0); Monocytes % 10.3 % (1.7-12.7); Neutrophils % 75.8 % (38.7-73.9); Platelet Count 72 T/CUMM (130-400); Red Blood Count 3.22 MC/CUMM (3.8-5.5); Red Cell Distribution Width 15.2 % (9.3-17.3); White Blood Count 9.1 T/CUMM (4-12)
[2021-05-31 05:23] LABS: Band Neutrophils 2 % (0-10); Eosinophils 1 % (0-10); Hypochromia 1+; Lymphocytes 6 % (20-55); Segmented Neutrophils 84 % (50-85); Total Cells Counted 100
[2021-05-31 05:24] LABS: Calcium 8.5 MG/DL (8.5-10.1); Macrocytosis 1+; Osmolality,Calculated 273.4 MOS/KG (273-304); Ovalocytes Slight; Polychromasia Slight; Potassium 4.6 MMOL/L (3.5-5.1); Tear Drop Cells Slight
[2021-05-31 05:25] LABS: Platelet Estimate Decreased
[2021-05-31] MEDS: GABAPENTIN 50 MG/ML 30 ML/BOTTLE PO SCH (09:15)
[2021-05-31] MEDS: OMEPRAZOLE ODT 20 MG TABLET PO SCH (09:16)
[2021-05-31] MEDS: ONDANSETRON 4 MG TABLET PO PRN ×2 (12:35→19:00)
[2021-05-31 14:24] LABS: PT Patient Result 11.6 SECS (10.5-12.0)
[2021-05-31] MEDS: LORazepam 2 MG/1 ML VIAL IV PRN (15:38)
[2021-05-31 17:43] LABS: ABG Base Excess 5.2 MMOL/L (-2.5-2.5); ABG Oxygen Saturation 92.7 % (95-100); ABG PCO2 38.8 MM HG (35-48); ABG PH 7.481 (7.35-7.45); ABG PO2 65.1 MM HG (80-95); ABG TCO2 25.5 MMOL/L (23-27); Pt O2 Delivery Device Other
[2021-05-31] MEDS ORDERED: MORPHINE 2 MG/1 ML SYRINGE IV ONE (18:00)
[2021-05-31] MEDS ORDERED: ACETAMINOPHEN 325 MG/10.15 ML UDCUP PO PRN (20:06)
[2021-05-31] MEDS: LEVOFLOXACIN INJ 750 MG/150 ML PREMIX IV SCH (21:02)
[2021-05-31] MEDS ORDERED: VANCOMYCIN INJ 1,000 MG in SODIUM CHLORIDE 0.9% 250 ML IV ONE (23:00)
[2021-06-01] MEDS: ONDANSETRON 4 MG TABLET PO PRN (00:16)
[2021-06-01] MEDS: GABAPENTIN 50 MG/ML 30 ML/BOTTLE PO SCH ×3 (00:26→20:45)
[2021-06-01] MEDS: MEROPENEM 500 MG in SODIUM CHLORIDE 0.9% 100 ML IV SCH ×5 (01:28→23:11)
[2021-06-01] MEDS: HYDROmorphone 2 MG/1 ML VIAL IV PRN ×4 (05:22→19:25)
[2021-06-01 05:57] LABS: INR 1.1; PT Patient Result 12.3 SECS (10.5-12.0); Partial Thromboplastin Time 29.4 SECS (23.8-32.1)
[2021-06-01 06:13] LABS: Calcium 8.8 MG/DL (8.5-10.1); Osmolality,Calculated 275.2 MOS/KG (273-304); Potassium 4.8 MMOL/L (3.5-5.1)
[2021-06-01 06:15] LABS: Basophils # 0.1 10*3/uL (0.0-0.2); Basophils % 0.7 % (0.0-0.8); Eosinophils % 0.2 % (0.00-10.9); Hemoglobin 11.1 GM/DL (14.0-18.0); Immature Granulocytes % 7.4 %; Immature Granulocytes Absolute 1.02 #; Lymphocytes # 0.8 10*3/uL (1.4-4.0); Mean Corpuscular HGB Conc 32.6 GM/DL (32-36); Mean Corpuscular Volume 102.7 FL (87-102); Monocytes % 9.9 % (1.7-12.7); NRBC # 0.02 10*3/uL; Neutrophils % 75.8 % (38.7-73.9); Platelet Count 83 T/CUMM (130-400); Red Blood Count 3.31 MC/CUMM (3.8-5.5); Red Cell Distribution Width 15.3 % (9.3-17.3); White Blood Count 13.8 T/CUMM (4-12)
[2021-06-01 06:33] LABS: Band Neutrophils 4 % (0-10); Lymphocytes 3 % (20-55); Segmented Neutrophils 84 % (50-85); Total Cells Counted 100
[2021-06-01 06:34] LABS: Hypochromia Slight; Microcytosis Slight; Platelet Estimate Decreased
[2021-06-01] MEDS: ALBUTEROL/IPRATROPIUM 3 ML NEB RESP TX SCH ×4 (07:26→19:20)
[2021-06-01] MEDS ORDERED: MAGNESIUM SULF RIDER 2 GM/50 ML PREMIX IV ONE (08:18)
[2021-06-01] MEDS: OMEPRAZOLE ODT 20 MG TABLET PO SCH (09:08)
[2021-06-01] MEDS ORDERED: fentaNYL 50 MCG/HR PATCH TRANSDERM SCH (11:00)
[2021-06-01] MEDS: LORazepam 2 MG/1 ML VIAL IV PRN (14:49)
[2021-06-01] MEDS: VANCOMYCIN INJ 750 MG in SODIUM CHLORIDE 0.9% 250 ML IV SCH (14:50)
[2021-06-02] MEDS: ALBUTEROL/IPRATROPIUM 3 ML NEB RESP TX SCH ×2 (00:15→07:52)
[2021-06-02] MEDS: VANCOMYCIN INJ 750 MG in SODIUM CHLORIDE 0.9% 250 ML IV SCH (01:01)
[2021-06-02] MEDS: MEROPENEM 500 MG in SODIUM CHLORIDE 0.9% 100 ML IV SCH ×2 (04:43→12:56)
[2021-06-02 05:29] LABS: Basophils % 0.4 % (0.0-0.8); Eosinophils % 0.4 % (0.00-10.9); Hematocrit 31.6 VOL% (42.0-52.0); Immature Granulocytes % 5.8 %; Immature Granulocytes Absolute 0.65 #; Lymphocytes # 0.8 10*3/uL (1.4-4.0); Lymphocytes % 6.7 % (21.2-54.2); Mean Corpuscular HGB Conc 31.6 GM/DL (32-36); Mean Corpuscular Volume 103.9 FL (87-102); Monocytes % 10.2 % (1.7-12.7); Neutrophils % 76.5 % (38.7-73.9); Platelet Count 86 T/CUMM (130-400); Red Blood Count 3.04 MC/CUMM (3.8-5.5); Red Cell Distribution Width 15.5 % (9.3-17.3); White Blood Count 11.3 T/CUMM (4-12)
[2021-06-02 05:42] LABS: Calcium 8.5 MG/DL (8.5-10.1); Osmolality,Calculated 280.2 MOS/KG (273-304); Potassium 4.4 MMOL/L (3.5-5.1)
[2021-06-02 05:56] LABS: Hypochromia 1+; Lymphocytes 6 % (20-55); Microcytosis 1+; Platelet Estimate Decreased; Segmented Neutrophils 85 % (50-85); Total Cells Counted 100
[2021-06-02] MEDS: HYDROmorphone 2 MG/1 ML VIAL IV PRN (07:09)
[2021-06-02 08:23] VITALS: BP 97/65
[2021-06-02] MEDS: OMEPRAZOLE ODT 20 MG TABLET PO SCH (10:48)
[2021-06-02] MEDS: GABAPENTIN 50 MG/ML 30 ML/BOTTLE PO SCH (10:49)
[2021-06-02] MEDS ORDERED: MORPHINE PCA 30 MG/30 ML SYRINGE IV SCH (11:00)
[2021-06-02] MEDS: LORazepam 2 MG/1 ML VIAL IV SCH ×2 (12:57→13:27)
== END 2021-06-02 14:07 | disposition hospice, inpatient (51) | DRG 199 ==
LOC: EDUNIT# → EDBD → N.ED 12:16 → SUATTDRO 18:49 → N.EDINP 18:49 → N.5E 23:16
PROVIDERS: ADMIT Internal Medicine; ATTEND Internal Medicine

== ENCOUNTER 2021-06-02 14:12 | Inpatient (IN) ==
[2021-06-02] MEDS ORDERED: ACETAMINOPHEN 650 MG SUPP RECTAL PRN (14:58)
[2021-06-02] MEDS: LORazepam 2 MG/1 ML VIAL IV SCH ×3 (16:19→22:55)
[2021-06-03] MEDS: LORazepam 2 MG/1 ML VIAL IV SCH ×12 (00:58→22:10)
[2021-06-03] MEDS: MORPHINE PCA 30 MG/30 ML SYRINGE IV SCH ×2 (17:55→18:58)
[2021-06-04] MEDS: LORazepam 2 MG/1 ML VIAL IV SCH ×6 (00:05→11:07)
[2021-06-04] MEDS ORDERED: fentaNYL 50 MCG/HR PATCH TRANSDERM SCH (09:00)
[2021-06-04] MEDS: LORazepam 2 MG/1 ML VIAL IV PRN ×2 (13:50→21:40)
[2021-06-05] MEDS: LORazepam 2 MG/1 ML VIAL IV PRN ×2 (02:29→08:11)
[2021-06-05] MEDS: MORPHINE PCA 30 MG/30 ML SYRINGE IV SCH (08:15)
[2021-06-05 08:23] VITALS: BP 124/84
== END 2021-06-05 10:00 | disposition expired | DRG 951 ==
LOC: N.5E 14:12
PROVIDERS: ADMIT Internal Medicine; ATTEND Internal Medicine